=== PATIENT | male | born 1985 | race Two or more races ===

== ENCOUNTER 2021-06-16 15:02 | Emergency (ER) | payer OTHER ==
[~2021-06-16] VITALS: Ht 170.2 cm; Wt 65.8 kg
[2021-06-16 15:15] VITALS: BP 126/89
--- NOTE | 2021-06-16 15:24 | NUR ---
Pt triaged in tent; remains in tent PUI.
--- NOTE | 2021-06-16 16:40 | NUR ---
NOVEL SWAB COLLECTED AND SENT TO LAB
[2021-06-16] MEDS ORDERED: ONDA4TAB PO (16:50)
[2021-06-16] MEDS ORDERED: IBUP-1842 PO (16:50)
[2021-06-16] MEDS ORDERED: ONDANSETRON 4 MG ODT PO ONE (17:05)
[2021-06-16 17:15] VITALS: BP 126/89
--- NOTE | 2021-06-16 17:15 | NUR ---
Patient discharged with v/s stable. Written and verbal after care instructions given and explained FOR COVID 19. Patient alert, oriented and verbalized understanding of instructions. Ambulatory with steady gait. All questions addressed prior to discharge. ID band removed. Patient advised to follow up with PMD. Rx of IBUPROFEN, ONDANSETRON given. Patient educated on indication of medication including possible reaction and side effects. Opportunity to ask questions provided and answered.
--- NOTE | 2021-06-18 09:05 | NUR ---
LATE ENTRY- Positive COVID-19 test results were received from lab. Waiting for a copy from lab to place into infection control's mailbox.
== END 2021-06-16 17:15 | disposition home or self-care (01) ==
LOC: MED 15:02
DX: B34.9 Viral infection, unspecified (principal); Z20.822 Contact with and (suspected) exposure to COVID-19; Z79.899 Other long term (current) drug therapy
CPT/HCPCS: 71045; 87426; 99284; Q0162; U0003

== ENCOUNTER 2021-07-05 11:33 | Emergency (ER) | payer OTHER ==
[~2021-07-05] VITALS: Ht 167.6 cm; Wt 65.8 kg
[~2021-07-05 11:33] MED LIST: IBUP-1842 PO; ONDA4TAB PO
[2021-07-05 11:42] VITALS: BP 136/93
--- NOTE | 2021-07-05 11:53 | NUR ---
Lili morales swab collected, handed to CPT Porsche
--- NOTE | 2021-07-05 12:04 | NUR ---
DARREN Morrison is evaluating patient in tent
--- NOTE | 2021-07-05 12:10 | NUR ---
No nursing interventions performed.
--- NOTE | 2021-07-05 12:30 | NUR ---
Patient discharged with v/s stable. Written and verbal after care instructions given and explained. Patient verbalized understanding. Ambulatory with steady gait. All questions addressed prior to discharge. Advised to follow up with PMD. Covid results copy provided.
== END 2021-07-05 12:30 | disposition home or self-care (01) ==
LOC: MED 11:33
DX: Z02.89 Encounter for other administrative examinations (principal); Z20.822 Contact with and (suspected) exposure to COVID-19; Z79.899 Other long term (current) drug therapy
CPT/HCPCS: 99283

== ENCOUNTER 2023-11-21 15:01 | Emergency (ER) | payer OTHER ==
[~2023-11-21] VITALS: Ht 167.6 cm; Wt 77.1 kg
[2023-11-21 15:30] VITALS: BP 118/75; PULSE 113; RESP 20; TEMP 99.3; O2SAT 98
[2023-11-21 16:26] LABS: FLU A ANTIGEN negative (NEGATIVE); FLU B ANTIGEN NEGATIVE (NEGATIVE)
[2023-11-21] MEDS ORDERED: IBUP-2213 PO (16:30)
[2023-11-21] MEDS ORDERED: BPM/473S94 PO (16:30)
[2023-11-21] MEDS ORDERED: ALBU0.0912 IH (16:30)
[2023-11-21] MEDS ORDERED: ONDA-188 SL (16:30)
== END 2023-11-21 16:35 | disposition home or self-care (01) ==
LOC: MED 15:01
DX: J06.9 Acute upper respiratory infection, unspecified (principal); Z20.822 Contact with and (suspected) exposure to COVID-19; Z79.899 Other long term (current) drug therapy; Z79.1 Long term (current) use of non-steroidal anti-inflammatories (NSAID)
CPT/HCPCS: 99283

== ENCOUNTER 2024-07-25 10:15 | Emergency (ER) | payer MEDICAID, OTHER ==
[~2024-07-25] VITALS: Ht 165.1 cm; Wt 72.8 kg
[~2024-07-25 10:15] MED LIST changes: +ALBU0.0912 IH; +BPM/473S94 PO; +IBUP-2213 PO; +ONDA-188 SL
[2024-07-25 10:40] VITALS: BP 129/99; PULSE 69; RESP 18; TEMP 97.8; O2SAT 98
[2024-07-25] MEDS: KETOROLAC 30 MG/ML VIAL IM ONE (13:03)
[2024-07-25] MEDS ORDERED: IBUP-2213 PO (13:46)
== END 2024-07-25 13:55 | disposition home or self-care (01) ==
LOC: MED 10:15
DX: R07.81 Pleurodynia (principal); R05.9 Cough, unspecified; R06.02 Shortness of breath; Z79.899 Other long term (current) drug therapy
CPT/HCPCS: 71111; 96372; 99283; J1885